=== PATIENT | male | born 1960 | race Caucasian/White ===

== ENCOUNTER 2017-07-21 15:16 | Emergency (ER) | payer OTHER ==
[~2017-07-21] VITALS: Ht 167.6 cm; Wt 71.7 kg
[~2017-07-21 15:16] MED LIST: CARAFATE1 GM/10 ML PO; CITALOPRAM10 MG PO; KEFLEX500 MG PO; MIRTAZAPINE7.5 MG PO
[2017-07-21 15:52] VITALS: BP 139/81
[2017-07-21 16:35] LABS: BASO % 0.4 % (0.0-1.0); EOS # 0.2 10*3/uL (0.0-0.4); EOS % 2.6 % (1.0-4.0); HEMATOCRIT 43.2 % (42.0-52.0); HEMOGLOBIN 14.4 g/dl (14.0-18.0); LYMPH # 1.4 10*3/uL (1.3-4.4); LYMPH % 18.8 % (27.0-41.0); MEAN CELL VOLUME 94.1 fl (80.0-94.0); MEAN CORPUSCULAR HGB 31.4 pg (27.0-31.0); MEAN CORPUSCULAR HGB CONC 33.3 g/dl (33.0-37.0); MEAN PLATELET VOLUME 9.1 fl (9.6-12.3); MONO # 0.9 10*3/uL (0.1-1.0); MONO % 12.1 % (3.0-9.0); NEUT # 4.9 10*3/uL (2.3-7.9); PLATELET COUNT AUTOMATED 257 10*3/uL (130-400); RED BLOOD COUNT 4.59 10*6/uL (4.50-5.90); RED CELL DISTRI WIDTH 12.5 % (0-14.5); WHITE BLOOD COUNT 7.4 10*3/uL (4.8-10.8)
[2017-07-21] MEDS ORDERED: CEPHALEXIN500 M1 PO (20:03)
== END 2017-07-22 01:24 | disposition home or self-care (01) ==
LOC: ED 15:16
PROVIDERS: Physician Assistant
DX: M25.421 Effusion, right elbow (principal); Z79.899 Other long term (current) drug therapy; Z91.030 Bee allergy status; Z88.8 Allergy status to other drugs, medicaments and biological substances

== ENCOUNTER 2018-07-23 08:39 | Emergency (ER) | payer OTHER ==
[~2018-07-23] VITALS: Ht 167.6 cm; Wt 68.0 kg
[~2018-07-23 08:39] MED LIST changes: +ATENOLOL25 MG PO; +CEPHALEXIN500 M1 PO; +ENSURE PLUS 23237 ML GT; +FIBERSOURCE HN250 M3 PO; +IPRATROPIUM BRO30 ML INH; +PROTONIX20 MG PO; +REMERON15 M2 PO
[2018-07-23 08:41] VITALS: BP 115/68
[2018-07-23] MEDS ORDERED: KEFLEX500 M1 PO (09:19)
[2018-07-23] MEDS ORDERED: CEPHALEXIN250 MG/5 M PO ×2 (09:33→09:38)
== END 2018-07-23 09:41 | disposition home or self-care (01) ==
LOC: ED 08:39
DX: L03.311 Cellulitis of abdominal wall (principal); J44.9 Chronic obstructive pulmonary disease, unspecified; I10 Essential (primary) hypertension; F17.210 Nicotine dependence, cigarettes, uncomplicated; Z93.1 Gastrostomy status; Z91.030 Bee allergy status; Z91.040 Latex allergy status; Z88.8 Allergy status to other drugs, medicaments and biological substances

== ENCOUNTER 2018-08-09 15:02 | Emergency (ER) | payer OTHER, MEDICARE ==
[~2018-08-09] VITALS: Ht 167.6 cm; Wt 64.4 kg
[~2018-08-09 15:02] MED LIST changes: +CEPHALEXIN250 MG/5 M PO; +KEFLEX500 M1 PO
[2018-08-09 16:17] VITALS: BP 138/84
== END 2018-08-09 16:38 | disposition other institution (70) ==
LOC: ED 15:02
DX: R63.4 Abnormal weight loss (principal); K94.23 Gastrostomy malfunction; J44.9 Chronic obstructive pulmonary disease, unspecified; I10 Essential (primary) hypertension; Z91.030 Bee allergy status; Z88.8 Allergy status to other drugs, medicaments and biological substances; Z91.040 Latex allergy status; Z79.2 Long term (current) use of antibiotics; Z79.899 Other long term (current) drug therapy; Z87.891 Personal history of nicotine dependence

== ENCOUNTER 2018-11-29 15:47 | Emergency (ER) | payer OTHER, MEDICARE ==
[2018-11-29 19:12] VITALS: BP 113/69
== END 2018-11-29 19:35 | disposition home or self-care (01) ==
LOC: ED 15:47
DX: K94.29 Other complications of gastrostomy (principal); E86.0 Dehydration; Z87.891 Personal history of nicotine dependence; Z91.030 Bee allergy status; Z91.040 Latex allergy status; Z88.8 Allergy status to other drugs, medicaments and biological substances; Z79.2 Long term (current) use of antibiotics; Z79.899 Other long term (current) drug therapy

== ENCOUNTER 2024-05-04 21:28 | Emergency (ER) | payer OTHER ==
[~2024-05-04] VITALS: Ht 165.1 cm; Wt 56.7 kg
[2024-05-04 21:31] VITALS: BP 173/87
[2024-05-04 23:58] LABS: BASO % 0.2 % (0.0-1.0); EOS % 0.1 % (1.0-4.0); HEMATOCRIT 42.7 % (42.0-52.0); LYMPH # 1.2 10*3/uL (1.3-4.4); LYMPH % 6.8 % (27.0-41.0); MEAN CELL VOLUME 93.6 fl (80.0-94.0); MEAN CORPUSCULAR HGB 31.6 pg (27.0-31.0); MEAN CORPUSCULAR HGB CONC 33.7 g/dl (33.0-37.0); MEAN PLATELET VOLUME 8.3 fl (9.6-12.3); MONO # 0.9 10*3/uL (0.1-1.0); MONO % 5.5 % (3.0-9.0); NEUT # 14.8 10*3/uL (2.3-7.9); NEUT % 86.6 % (47.0-73.0); PLATELET COUNT AUTOMATED 267 10*3/uL (130-400); RED BLOOD COUNT 4.56 10*6/uL (4.50-5.90); RED CELL DISTRI WIDTH 13.3 % (0-14.5); WHITE BLOOD COUNT 17.1 10*3/uL (4.8-10.8)
[2024-05-05 00:20] LABS: BUN 10 mg/dl (9-23); CHLORIDE 101 mmol/L (98-107); POTASSIUM 3.7 mmol/L (3.4-5.1)
[2024-05-05 00:24] LABS: ACT PARTIAL THROMBO TIME 27.9 SECONDS (20.0-32.1)
[2024-05-05] MEDS ORDERED: Acetaminophen/Oxycodone 5 MG/325 MG TABLET PO ONE (01:00)
[2024-05-05] MEDS ORDERED: Ketorolac Tromethamine 30 MG/ML VIAL IV ONE (01:15)
[2024-05-05] MEDS ORDERED: MELOXICAM15 MG PO (02:51)
== END 2024-05-05 02:53 | disposition home or self-care (01) ==
LOC: ED 21:28
PROVIDERS: Internal Medicine
DX: R07.89 Other chest pain (principal); F32.A Depression, unspecified; I10 Essential (primary) hypertension; F10.10 Alcohol abuse, uncomplicated; Z91.030 Bee allergy status; Z91.040 Latex allergy status; Z88.8 Allergy status to other drugs, medicaments and biological substances; Z98.890 Other specified postprocedural states; Z87.891 Personal history of nicotine dependence; V44.9XXA Unspecified car occupant injured in collision with heavy transport vehicle or bus in traffic accident, initial encounter; Y93.89 Activity, other specified; Y92.410 Unspecified street and highway as the place of occurrence of the external cause; Y99.8 Other external cause status